=== PATIENT | male | born 1995 | race Caucasian/White ===

== ENCOUNTER → 2019-01-12 16:47 | Outpatient (CLI) | payer MEDICAID ==
[2018-12-17 14:32] VITALS: BMI 18.9
[~2019-01-12 16:47] MED LIST: CIPRO500 MG PO; CLOTRIM ANTIFUN15 GM TOPICAL; HYDROCODON-ACE1 EAC7 PO; SULFAMETHOXAZOL1 TA2 PO; VOLTAREN75 MG PO
[2019-01-12 17:27] LABS: BASOPHILS 1.2 % (0-2); EOSINOPHILS 0.4 % (0-7); HEMATOCRIT 41.1 % (42.0-54.0); HEMOGLOBIN 14.2 g/dL (13.5-17.5); IMMATURE GRANULOCYTES 0.1 % (0-5); LYMPHOCYTES 25.6 % (15-50); MCH 30.6 pg (26.0-34.0); MCHC 34.5 g/dL (31.0-37.0); MCV 88.6 fL (80.0-100.0); MONOCYTES 15.7 % (2-11); RBC 4.64 10x6/uL (4.20-6.10); RDW 13.5 % (11.5-14.5); WBC 7.7 10x3/uL (4.8-10.8)
[2019-01-12 17:34] LABS: PLATELET COUNT 373 10x3/uL (130-400)
[2019-01-12 18:54] LABS: ERYTHROCYTE SEDIMENTATION RATE 3 mm/hr (0-15)
== END | disposition home or self-care (01) ==
LOC: D.LABREF 16:47
PROVIDERS: ATTEND Nurse Practitioner Family
DX: L08.9 Local infection of the skin and subcutaneous tissue, unspecified (principal)

== ENCOUNTER 2019-01-22 00:46 | Emergency (ER) | payer MEDICAID ==
[~2019-01-22] VITALS: Ht 193 cm; Wt 95.5 kg
[~2019-01-22 00:46] MED LIST changes: -CLOTRIM ANTIFUN15 GM TOPICAL
[2019-01-22 00:53] VITALS: Ht 193 cm; Wt 95.5 kg
[2019-01-22] MEDS ORDERED: SULFAMETHOXAZOL1 TA2 PO (00:55)
[2019-01-22 01:32] LABS: BASOPHILS 0.6 % (0-2); EOSINOPHILS 1.3 % (0-7); IMMATURE GRANULOCYTES 0.5 % (0-5); LYMPHOCYTES 30.9 % (15-50); MCH 30.2 pg (26.0-34.0); MCV 86.2 fL (80.0-100.0); MEAN PLATELET VOLUME 9.4 fL (7.4-10.4); MONOCYTES 9.8 % (2-11); NEUTROPHILS 56.9 % (40-80); PLATELET COUNT 205 10x3/uL (130-400); RBC 4.64 10x6/uL (4.20-6.10); RDW 13.6 % (11.5-14.5); WBC 9.9 10x3/uL (4.8-10.8)
[2019-01-22 01:42] LABS: CALC OSMOLALITY 269 mosm/kg (275-300); CALCIUM 8.8 mg/dL (8.5-10.1); CARBON DIOXIDE 24.8 mmol/L (21.0-32.0); CHLORIDE - SERUM 99 mmol/L (98-107); CREATININE - SERUM 1.1 mg/dL (0.6-1.3); GLUCOSE 118 mg/dL (74-106); SODIUM 135 mmol/L (136-145); UREA NITROGEN 11 mg/dL (7-18); eGFR NON AFRICAN AMERICAN 88 mL/min (90-120)
[2019-01-22] MEDS ORDERED: CLOTRIM ANTIFUN15 GM TOPICAL (01:44)
[2019-01-22 02:00] LABS: ALBUMIN 4.1 g/dL (3.4-5.0); ALKALINE PHOSPHATASE 116 U/L (46-116); ALT (SGPT) 24 U/L (10-68); BILIRUBIN - TOTAL 0.25 mg/dL (0.2-1.3); PROTEIN - SERUM 7.7 g/dL (6.4-8.2)
[2019-01-22 02:30] VITALS: BP 142/77
[2019-01-22 02:32] LABS: C-REACTIVE PROTEIN 0.2 mg/dL (0.0-0.9)
[2019-01-25 17:08] LABS: AFB SPECIMEN PROCESSING Not Indicated (())
== END 2019-01-22 02:30 | disposition home or self-care (01) ==
LOC: D.ER 00:46
PROVIDERS: Family Medicine
DX: B35.4 Tinea corporis (principal); F17.200 Nicotine dependence, unspecified, uncomplicated